=== PATIENT | female | born 1955 | race Caucasian/White ===

== ENCOUNTER → 2019-03-11 08:35 | Outpatient (CLI) | payer BC | END | disposition home or self-care (01) | LOC: D.RT 08:35 | PROVIDERS: ATTEND Internal Medicine Pulmonary Disease | DX: R94.2 Abnormal results of pulmonary function studies (principal) ==

== ENCOUNTER → 2020-04-02 07:40 | Outpatient (CLI) | payer BC | END | disposition home or self-care (01) | LOC: D.CT 07:40 | PROVIDERS: ATTEND Internal Medicine Pulmonary Disease | DX: R91.8 Other nonspecific abnormal finding of lung field (principal) ==

== ENCOUNTER → 2020-04-06 09:32 | Outpatient (CLI) | payer BC | END | disposition home or self-care (01) | LOC: D.LAB 09:32 | PROVIDERS: ATTEND Internal Medicine Pulmonary Disease | DX: Z11.59 Encounter for screening for other viral diseases (principal) ==

== ENCOUNTER → 2020-04-20 07:24 | Outpatient (CLI) | payer BC | END | disposition home or self-care (01) | LOC: D.LAB 07:24 | PROVIDERS: ATTEND Internal Medicine Pulmonary Disease | DX: J44.9 Chronic obstructive pulmonary disease, unspecified (principal) ==

== ENCOUNTER → 2020-04-23 07:37 | Outpatient (CLI) | payer BC | END | disposition home or self-care (01) | LOC: D.RT 04-07 08:00 | PROVIDERS: ATTEND Internal Medicine Pulmonary Disease | DX: J44.9 Chronic obstructive pulmonary disease, unspecified (principal); Z11.59 Encounter for screening for other viral diseases ==